=== PATIENT | female | born 1965 | race Caucasian/White ===

== ENCOUNTER 2016-11-28 13:43 | Inpatient (IN) | payer OTHER ==
[~2016-11-28] VITALS: Ht 170.2 cm; Wt 75.4 kg
[~2016-11-28 13:43] MED LIST: ASACOL PO; ASACOL400 MG PO; AUGMENTIN 875/11 TAB PO; BACTRIM DS 8001 TAB PO; CALAN PO; CIPRO500 MG PO; CLARITIN10 M1 PO; CLARITIN10 MG PO; FLAGYL250 MG PO; FLAGYL500 M1 PO; FOLATE1 MG PO; FOLIC ACID1 MG PO; HYDROCODONE/ACE1 TA7 PO; MS-CONTIN30 MG PO; NIASPAN500 MG PO; PEPCID20 M1 PO; PEPCID20 MG PO; PREMARIN0.3 M1 PO; PREMARIN0.625 MG; PRILOSEC40 MG PO; SYNTHROID0.088 MG PO; TRICOR134 MG PO; TRICOR48 MG PO; VERAPAMIL HCL PO; ZOCOR10 M1 PO; ZOCOR20 MG PO
[2016-11-28 14:34] VITALS: BP 127/83
--- NOTE | 2016-11-28 14:43 | NUR ---
Patient to bed 02.
--- NOTE | 2016-11-28 15:04 | NUR ---
Dr. Kirk evaluating patient at bedside.
[2016-11-28] MEDS ORDERED: NACL 0.9% 1,000 ML IV SCH (15:07)
[2016-11-28] MEDS ORDERED: fentaNYL 0.05 MG/ML VIAL IVP ONE (15:10)
[2016-11-28] MEDS ORDERED: NACL 0.9% 1,000 ML IV ONE (15:10)
[2016-11-28] MEDS ORDERED: ONDANSETRON 4 MG/2 ML VIAL IVP ONE (15:10)
--- NOTE | 2016-11-28 15:15 | NUR ---
LAB AT BEDSIDE
--- NOTE | 2016-11-28 15:16 | NUR ---
PATIENT PRESENTS TO DUE TO LOWER RIGHT SIDE ABDOMINAL PAIN/VOMITING X LAST NIGHT; PT STATES HAD COSMETIC SURGERY 11/12/16. SKIN IS PINK/WARM/DRY; AAOX4 WITH EVEN AND STEADY GAIT; LUNGS CLEAR BL; HR EVEN AND REGULAR; PT DENIES ANY FEVER, CP, SOB, OR COUGH AT THIS TIME; PATIENT STATES PAIN OF 10/10/ABDOMEN AT THIS TIME; PATIENT POSITIONED FOR COMFORT; HOB ELEVATED; BEDRAILS UP X2; BED DOWN. WILL DO BODY ASSESSMENT LATER AFTER CT.PT AAO,
--- NOTE | 2016-11-28 15:22 | NUR ---
PT WENT TO CT VIA RUFUS DEWEY AT BEDSIDE
--- NOTE | 2016-11-28 15:33 | NUR ---
PT BACK FROM PT AAO.
--- NOTE | 2016-11-28 16:20 | NUR ---
PT EYES OPEN, IVF ONGOING WELL TOLERATED ,VITAL SIGN STABLE NOTED ,WITH LAMONTE ON LEFT HIP WITH SEROSANGENOUS OUTPUT, SUTURE LINE ON ABDOMEN INTACT .
--- NOTE | 2016-11-28 17:46 | NUR ---
PT AAO, IVF ONGOING WELL TOLERATED, REPORTED TO MD K LEVEL MD NO ORDER FOR NOW, EMPTIED LAMONTE 35ML SEROSANGENIOUS OUTPUT, NOTED SUTURE LINE ON ABDOMEN, DRY WITH BLACK SCAB IN THE MIDDLE,ALSO NOTED DRAIN ON SACRAL NO OUTPUT NOTED.
--- NOTE | 2016-11-28 18:07 | NUR ---
REPORT GIVEN TO SEGUN PT AWARE SHE IS NPO FOR NOW.
[2016-11-28 18:19] VITALS: BP 95/59
--- NOTE | 2016-11-28 18:20 | NUR ---
TRANSFER TO TELE, PT AAO, ABLE TO TRANSFER FROM [facility] TO BED, NO VOMITITNG NOTED, ENDORSED TO LAMONTE CAST ON LEFT HIP INTACT,
--- NOTE | 2016-11-28 18:57 | NUR ---
PT ON UNIT. NO S/S OF ACUTE DISTRESS. AAOX4. IV SITE PATENT AND INTACT. PT DENIES PAIN. LAMONTE DRAIN TO LEFT HIP NOTED. DRAIN TO SACRAL AREA NOTED. PT ORIENTED TO ROOM. CALL LIGHT WITHIN REACH. SAFETY MEASURES ENSURED. WILL CONTINUE TO MONITOR.
--- NOTE | 2016-11-28 19:15 | NUR ---
RECEIVED REPORT FROM HUNTER CAST AT BEDSIDE. INITIAL ASSESSMENT COMPLETED. PT AAOX4. PT AMBULATES. PT HAS IV TO RIGHT FOREARM. PT HAS A SCAR ON ABDOMEN S/P GASTRIC BYPASS ON 11/12/16. LAMONTE DRAIN TO SACRAL AREA NOTED. PT DENIES PAIN AT THIS TIME. ORIENTED PT TO ROOM AND SURROUNDINGS AND USE OF CALL LIGHT. EXPLAINED PLAN OF CARE TO PT AND SHE VERBALIZES UNDERSTANDING. SAFETY MEASURES IN PLACE. WILL CONTINUE TO MONITOR PT.
--- NOTE | 2016-11-28 19:24 | NUR ---
ENDORSED PLAN OF CARE TO NIGHT RN. PT REMAINS IN STABLE CONDITION.
--- NOTE | 2016-11-28 19:30 | NUR ---
DR. COTTER AWARE THAT THERE IS NO CODE FOR PT. HE STATED HE WAS GOING TO PUT IN CODE. WILL CONTINUE TO MONITOR PT.
[2016-11-28 20:00] VITALS: BP 111/75
[2016-11-28] MEDS ORDERED: ACETAMINOPHEN 325 MG TAB PO PRN (20:00)
[2016-11-28] MEDS ORDERED: DOCUSATE SODIUM 100 MG GELCAP PO PRN (20:00)
[2016-11-28] MEDS ORDERED: POTASSIUM CHLORIDE 10 MEQ TABER PO SCH (20:05)
[2016-11-28] MEDS ORDERED: MAG SULF 2000 MG/WATER PREMIX 50 ML IV ONE (20:05)
[2016-11-28] MEDS: MESALAMINE 400 MG CAPSULE.DR PO SCH (21:00)
[2016-11-28] MEDS ORDERED: HYDROmorphone 1 MG/ML AMP IVP PRN (21:05)
[2016-11-28] MEDS ORDERED: PIPERACILLIN/TAZOBACTAM 3.375 GM VIAL IV ONE (22:22)
--- NOTE | 2016-11-28 22:31 | NUR ---
PT COMPLAINING OF ABDOMINAL PAIN 07/11. VS STABLE, WILL MEDICATE ORDERED.
[2016-11-28] MEDS: HYDROmorphone PFS 2 MG/ML SYR IVP PRN (22:34)
[2016-11-28] MEDS: FAMOTIDINE 20 MG TAB PO SCH (22:35)
[2016-11-28] MEDS: PIPER/TAZO 3.375GM/D5W PREMIX 50 ML IV SCH (22:37)
[2016-11-28] MEDS: ONDANSETRON 4 MG/2 ML VIAL IVP PRN (22:50)
--- NOTE | 2016-11-28 22:58 | NUR ---
PT TOLERATED MEDS WELL, CALL LIGHT WITHIN REACH.
--- NOTE | 2016-11-28 23:04 | NUR ---
MESALAMINE NOT GIVEN. MED NOT AVAILABLE.
[2016-11-29] VITALS (7 sets, daily range): BP systolic 88–106; BP diastolic 51–67
--- NOTE | 2016-11-29 00:55 | NUR ---
PT WATCHING TV. PT DENIES PAIN OR DISCOMFORT. CALL LIGHT WITHIN REACH.
--- NOTE | 2016-11-29 03:05 | NUR ---
PT SLEEPING AT THIS TIME, NO SIGNS OF DISTRESS NOTED. CALL LIGHT WITHIN REACH.
--- NOTE | 2016-11-29 03:44 | NUR ---
PT HAS SCDS ON. CALL LIGHT WITHIN REACH.
[2016-11-29] MEDS ORDERED: PIPERACILLIN/TAZOBACTAM 3.375 GM VIAL IV ONE (04:41)
[2016-11-29] MEDS: PIPER/TAZO 3.375GM/D5W PREMIX 50 ML IV SCH ×3 (04:43→20:56)
--- NOTE | 2016-11-29 04:44 | NUR ---
PT COMPLAINING OF ABDOMINAL PAIN 06/11. VS BP 110/68, HR 98, O2 SAT 98%, T 98.7 R 18. WILL MEDICATE ORDERED.
[2016-11-29] MEDS: HYDROmorphone PFS 2 MG/ML SYR IVP PRN ×2 (04:48→21:15)
--- NOTE | 2016-11-29 06:48 | NUR ---
PT STABLE, PT WATCHING TV. PT STATES THAT SHE HAS NOT PAIN AT THIS TIME. WILL CONTINUE TO MONITOR PT.
--- NOTE | 2016-11-29 07:15 | NUR ---
ENDORSED PT IN STABLE CONDITION TO HUNTER CAST FOR CONTINUITY OF CARE.
--- NOTE | 2016-11-29 07:17 | NUR ---
RECEIVED REPORT FROM NIGHT RN. PT RESTING IN BED. AAOX4. NO S/S OF ACUTE DISTRESS. PT DENIES PAIN. IV SITE PATENT AND INTACT. LAMONTE DRAIN TO LEFT HIP PATENT. DRAIN NOTED ON SACRAL AREA WITH NO DRAINAGE. SCABS TO ABDOMEN NOTED. CALL LIGHT WITHIN REACH. SAFETY MEASURES ENSURED. WILL CONTINUE TO MONITOR.
--- NOTE | 2016-11-29 07:58 | NUR ---
PATIENT HAS BEEN SCREENED AND CATEGORIZED MODERATE NUTRITION RISK. PATIENT WILL BE SEEN WITHIN 3-5 DAYS OF ADMISSION. 12/01/16-12/03/[address]
[2016-11-29] MEDS: LEVOTHYROXINE 0.025 MG TAB PO SCH ×2 (09:00→09:24)
[2016-11-29] MEDS: MESALAMINE 400 MG CAPSULE.DR PO SCH ×4 (09:00→20:57)
[2016-11-29] MEDS: LORATADINE 10 MG TAB PO SCH (09:00)
[2016-11-29] MEDS: FENOFIBRATE 48 MG TAB PO SCH ×2 (09:00→09:23)
[2016-11-29] MEDS: VERAPAMIL 180 MG TABER PO SCH (09:00)
--- NOTE | 2016-11-29 09:19 | NUR ---
PT REFUSES SOME AM MEDS AT THIS TIME. PT STATES SHE DOESN'T TAKE THEM AT HOME AND DOESN'T WANT TO BE ON THEM WHILE SHE IS HERE.
[2016-11-29] MEDS: FAMOTIDINE 20 MG TAB PO SCH ×2 (09:20→20:57)
[2016-11-29] MEDS ORDERED: POTASSIUM CHLORIDE 10 MEQ TABER PO SCH ×2 (09:30→19:40)
--- NOTE | 2016-11-29 10:05 | NUR ---
PT RESTING IN BED. NO S/S OF ACUTE DISTRESS. PT TOLERATED AM MEDS WELL. PT TOLERATED BREAKFAST WELL. CALL LIGHT WITHIN REACH. SAFETY MEASURES ENSURED. WILL CONTINUE TO MONITOR.
--- NOTE | 2016-11-29 11:32 | NUR ---
PT UP AND AMBULATING IN HALLWAY. NO S/S OF ACUTE DISTRESS. PT STATES PAIN 05/11. BP IS 93/52. EXPLAINED TO PT THAT HER BP WAS TOO LOW TO GIVE DILAUDID. PT VERBALIZED UNDERSTANDING. DR. COTTER MADE AWARE. PT TAKEN BACK TO HER ROOM. CALL LIGHT WITHIN REACH. SAFETY MEASURES ENSURED. SCD'S ON BLE. WILL CONTINUE TO MONITOR.
--- NOTE | 2016-11-29 12:28 | NUR ---
PT REFUSED DELZICOL AT THIS TIME. PT STATES SHE NO LONGER TAKES THIS AT HOME AND DOESN'T WANT TO TAKE IT HERE.
--- NOTE | 2016-11-29 14:21 | NUR ---
PT RESTING IN BED. NO S/S OF ACUTE DISTRESS. PT STATES SHE HAS 8/10 PAIN. PT'S BP 87/52. DR. COTTER MADE AWARE. PT VERBALIZED UNDERSTANDING THAT DILAUDID CAN'T BE GIVEN WITH A LOW BP. PT DOESN'T WANT TO TRY NORCO BECAUSE OF THE CONSTIPATION. PT STATES SHE WILL WALK AROUND THE UNIT WITH HER FRIEND.
--- NOTE | 2016-11-29 16:05 | NUR ---
PT STATES PAIN IS 8/10. PT'S BLOOD PRESSURE TOO LOW FOR DILAUDID. PT REFUSED NORCO. PT REPOSITIONED. DR. COTTER MADE AWARE. CALL LIGHT WITHIN REACH. WILL CONTINUE TO MONITOR.
--- NOTE | 2016-11-29 16:37 | NUR ---
PT STATES PAIN IS 8/10. PT'S BP TOO LOW TO GIVE PAIN DILAUDID. PT REFUSES NORCO DUE TO NOT WANTING TO BECOME CONSTIPATED. PT STATES SHE WILL TRY TYLENOL. MEDICATED ORDERED.
[2016-11-29] MEDS ORDERED: SIMVASTATIN 20 MG TAB PO SCH (17:00)
[2016-11-29] MEDS ORDERED: oxyCODONE/APAP 5/325 MG 1 TAB TAB PO PRN (17:55)
--- NOTE | 2016-11-29 19:23 | NUR ---
ENDORSED PLAN OF CARE TO NIGHT RN. PT REMAINS IN STABLE CONDITION.
--- NOTE | 2016-11-29 19:40 | NUR ---
RECEIVED PT IN STABLE CONDITION FROM AM NURSE. AWAKE,ALERT AND ORIENTED X4. ON TELE MONITOR. WITH NO C/O OF ANY DISCOMFORT NOR PAIN AT THIS TIME. AMBULATORY. HL ON THE RT HAND#24. CLEAR AND PATENT. HAS J ALBARRAN DRAIN ON THE LT HIP . PLAN OF CARE DISCUSSED AND VERBALIZED UNDERSTANDING. CALL LIGHT PLACED WITHIN EASY REACH . INSTRUCTED TO CALL FOR ANY ASSISTANCE . WILL CONTINUE TO MONITOR.
[2016-11-29] MEDS ORDERED: CLINDAMYCIN 600 MG/4 ML VIAL ONE (20:55)
--- NOTE | 2016-11-29 21:13 | NUR ---
IV ACCESS ON THE RT HAND #24 INFILTRATED. DISCONTINUED. A NEW IV SITE STARTED ON THE LT WRIST #22. CLEAR AND PATENT WITH GOOD BLOOD RETURN.
[2016-11-29] MEDS: CLINDAMYCIN 600 MG in DEXTROSE 5% 50 ML IV SCH (22:15)
[2016-11-29] MEDS: ONDANSETRON 4 MG/2 ML VIAL IVP PRN (23:08)
--- NOTE | 2016-11-29 23:08 | NUR ---
C/O NAUSEA. MEDICATED WITH ZOFRAN IVP ORDERED. WILL CONTINUE TO MONITOR.
--- NOTE | 2016-11-30 01:30 | NUR ---
SLEEPING AT THIS TIME. NO S/S OF ANY DISCOMFORT NOTED. WILL CONTINUE TO MONITOR.
[2016-11-30 03:29] VITALS: BP 128/77
[2016-11-30] MEDS: HYDROmorphone PFS 2 MG/ML SYR IVP PRN (03:32)
--- NOTE | 2016-11-30 04:05 | NUR ---
IV ACCESS ON THE LT WRIST #22 INFILTRATED. NEW IV SITE ON THE RT FA#24 STARTED BY HUNTER BAZANTUBE LANCER.
[2016-11-30] MEDS ORDERED: CLINDAMYCIN 600 MG/4 ML VIAL ONE (04:52)
[2016-11-30] MEDS: PIPER/TAZO 3.375GM/D5W PREMIX 50 ML IV SCH ×2 (04:58→13:00)
[2016-11-30] MEDS: CLINDAMYCIN 600 MG in DEXTROSE 5% 50 ML IV SCH ×2 (05:46→13:00)
--- NOTE | 2016-11-30 06:10 | NUR ---
EMPTIED 60ML OF CREAMY DRAINAGE ON J ALBARRAN.
--- NOTE | 2016-11-30 07:30 | NUR ---
RECEIVED ON BED AAOX4. NO SOB NOTED. NO C/O PAIN AT THIS TIME. IV TO RT FOREARM INFILTRATED. WILL RESTART A NEW LINE SOON. CHEST CLEAR. ABDOMEN SOFT, BOWEL SOUNDS PRESENT. WITH ABDOMINAL SCARS AND SCABS NOTED OPEN TO AIR, WOUND HEALED, S/P MIKY BORGES 11/12/2016. WITH LAMONTE DRAIN ON LEFT ABDOMEN, DRAINING 25 MLS OF YELLOW FAT-LIKE FLUIDS. NO EDEMA NOTED. INSTRUCTED PT TO CALL FOR ASSISTANCE, CALL LIGHT WITHIN REACH, PT VERBALIZED UNDERSTANDING.
--- NOTE | 2016-11-30 07:38 | NUR ---
ENDORSED PT IN STABLE CONDITION TO AM NURSE.
[2016-11-30 08:00] VITALS: BP 103/69
--- NOTE | 2016-11-30 08:00 | NUR ---
PT REFUSED IV RESTART. DR. COTTER NOTIFIED, PT IS FOR DISCHARGE PLANNING TODAY.
[2016-11-30] MEDS ORDERED: HYDROmorphone 2 MG TAB PO SCH (08:50)
[2016-11-30] MEDS: MESALAMINE 400 MG CAPSULE.DR PO SCH ×2 (09:00→13:00)
[2016-11-30] MEDS: LORATADINE 10 MG TAB PO SCH (09:00)
[2016-11-30] MEDS: FAMOTIDINE 20 MG TAB PO SCH (09:00)
[2016-11-30] MEDS: VERAPAMIL 180 MG TABER PO SCH (09:00)
[2016-11-30] MEDS: LEVOTHYROXINE 0.025 MG TAB PO SCH (09:00)
[2016-11-30] MEDS: FENOFIBRATE 48 MG TAB PO SCH (09:00)
--- NOTE | 2016-11-30 09:56 | NUR ---
PT REFUSED ALL HER DUE MEDICATIONS THIS MORNING. RISKS AND BENEFITS DISCUSSED, PT VERBALIZED UNDERSTANDING.
--- NOTE | 2016-11-30 12:05 | NUR ---
PT TOLERATED TOMATO SOUP FOR LUNCH. NO N&V NOTED.
[2016-11-30] MEDS ORDERED: ACETAMINOPHEN-O1 TAB PO (12:36)
[2016-11-30] MEDS ORDERED: FLORASTOR250 MG PO (12:36)
[2016-11-30] MEDS ORDERED: BACTRIM DS 8001 TA1 PO (12:37)
--- NOTE | 2016-11-30 13:00 | NUR ---
DISCHARGE INSTRUCTIONS AND PRESCRIPTIONS GIVEN TO PT WHICH VERBALIZED FULL UNDERSTANDING OF THE INSTRUCTIONS GIVEN AND THE NEED TO FOLLOW UP WITH HER OWN SURGEON ON DECEMBER 07, 2016. IV AND ARM BANDS REMOVED, CANNULA TIP INTACT. PT IS WAITING FOR HER TO PICK HER UP.
--- NOTE | 2016-11-30 14:10 | NUR ---
PT WHEELED TO THE FRONT LOBBY IN STABLE CONDITION. NO C/O PAIN AT THIS TIME. LAMONTE DRAINED TOTAL OF 40 MLS , YELLOW, FATTY LIKE FLUIDS NOTED. PT IS DISCHARGED HOME WITH .
== END 2016-11-30 14:10 | disposition home or self-care (01) | DRG 871 ==
LOC: MED 13:43 → MTU 17:08
PROVIDERS: ADMIT Family Medicine; ATTEND Family Medicine
DX: A41.9 Sepsis, unspecified organism (principal); E43 Unspecified severe protein-calorie malnutrition; N39.0 Urinary tract infection, site not specified; D47.3 Essential (hemorrhagic) thrombocythemia; D64.9 Anemia, unspecified; E87.6 Hypokalemia; E83.42 Hypomagnesemia; E83.51 Hypocalcemia; E83.41 Hypermagnesemia; E03.9 Hypothyroidism, unspecified; E78.5 Hyperlipidemia, unspecified; G43.909 Migraine, unspecified, not intractable, without status migrainosus; I10 Essential (primary) hypertension; M06.9 Rheumatoid arthritis, unspecified; M19.90 Unspecified osteoarthritis, unspecified site; Z98.890 Other specified postprocedural states; R10.9 Unspecified abdominal pain

== ENCOUNTER 2017-02-04 12:54 | Emergency (ER) | payer OTHER ==
[~2017-02-04] VITALS: Ht 170.2 cm; Wt 73.0 kg
[~2017-02-04 12:54] MED LIST changes: +ACET-9494 PO; -ASACOL PO; -ASACOL400 MG PO; -AUGMENTIN 875/11 TAB PO; -BACTRIM DS 8001 TAB PO; -CALAN PO; +CALER180 PO; -CIPRO500 MG PO; -CLARITIN10 M1 PO; -CLARITIN10 MG PO; +FAMO-90 PO; -FLAGYL250 MG PO; -FLAGYL500 M1 PO; -FOLATE1 MG PO; +FOLI1TAB19 PO; -FOLIC ACID1 MG PO; -HYDROCODONE/ACE1 TA7 PO; +LEVO0.083 PO; +LORA10TA19 PO; -MS-CONTIN30 MG PO; +MSCON30 PO; -NIASPAN500 MG PO; +OMEP40EC1 PO; -PEPCID20 M1 PO; -PEPCID20 MG PO; +PRE.3 PO; -PREMARIN0.3 M1 PO; -PREMARIN0.625 MG; -PRILOSEC40 MG PO; +SACC250C4 PO; +SIMV20TA1 PO; +SULF-59 PO; -SYNTHROID0.088 MG PO; +TRI48 PO; -TRICOR134 MG PO; -TRICOR48 MG PO; -VERAPAMIL HCL PO; -ZOCOR10 M1 PO; -ZOCOR20 MG PO; +[UNRECOGNIZED DRUG - CODE] PO
[2017-02-04 13:00] VITALS: BP 121/79
[2017-02-04] MEDS ORDERED: NACL 0.9% 1,000 ML IV SCH (14:11)
[2017-02-04] MEDS ORDERED: ONDANSETRON 4 MG/2 ML VIAL IVP ONE (14:15)
[2017-02-04] MEDS ORDERED: FAMOTIDINE 20 MG/2 ML VIAL IVP ONE (14:15)
--- NOTE | 2017-02-04 14:30 | NUR ---
51/F BIB FAMILY C/O ABDOMINAL PAIN. PT STATES SHE UNDERWENT ABDOMINALPLASTY 11/12/16 AT [facility] IN [place], AND HAS HAD SEVERAL INCISIONAL INFECTIONS SINCE THAT TIME, INCLUDING MRSA. HX HYPERLIPIDEMIA AND HYPOTHYROIDISM. PT DENIES N/V/D; SKIN IS PINK/WARM/DRY; AAOX4 WITH EVEN AND STEADY GAIT; LUNGS CLEAR BL; HR EVEN AND REGULAR; PT DENIES ANY FEVER, CP, SOB, OR COUGH AT THIS TIME; PATIENT STATES PAIN OF 6/10 AT THIS TIME; VSS; PATIENT POSITIONED FOR COMFORT; HOB ELEVATED; BEDRAILS UP X2; BED DOWN. ER MD MADE AWARE OF PT STATUS.
[2017-02-04 14:49] LABS: BASOPHILS # (AUTO) 0.2 K/uL (0.00-0.22); BASOPHILS % (AUTO) 2.5 % (0.0-2.0); EOSINOPHILS # (AUTO) 0.3 K/uL (0-0.4); EOSINOPHILS % (AUTO) 3.4 % (0.0-4.0); HEMATOCRIT 34.7 % (36-48); HEMOGLOBIN 11.6 g/dL (12.0-16.0); LYMPHOCYTES # (AUTO) 2.7 K/uL (2.5-16.5); LYMPHOCYTES % (AUTO) 33.3 % (20.5-51.1); MEAN CORPUSCULAR HEMOGLOBIN 30 pg (27-31); MEAN CORPUSCULAR HGB CONC 33 g/dL (33-37); MEAN CORPUSCULAR VOLUME 90 fL (80-94); MONOCYTES # (AUTO) 0.4 K/uL (0.8-1.0); NEUTROPHILS # (AUTO) 4.6 K/uL (1.8-7.7); NEUTROPHILS % (AUTO) 55.8 % (42.2-75.2); PLATELET COUNT (AUTO) 300 K/uL (140-450); RED BLOOD CELL COUNT(AUTO) 3.87 MIL/uL (4.20-5.40); RED CELL DISTRIBUTION WIDTH 15.1 % (11.6-13.7); WHITE BLOOD COUNT (AUTO) 8.3 K/uL (4.8-10.8)
[2017-02-04 15:04] LABS: CALCIUM 8.5 mg/dL (8.5-10.1); CARBON DIOXIDE 30.5 mmol/L (21-32); CREATININE 0.9 mg/dL (0.6-1.3); POTASSIUM 3.5 mmol/L (3.5-5.1)
[2017-02-04 15:10] LABS: ALBUMIN 3.2 g/dL (3.4-5.0); TOTAL BILIRUBIN 0.6 mg/dL (0.0-1.0); TOTAL PROTEIN, SERUM 6.6 g/dL (6.4-8.2)
--- NOTE | 2017-02-04 15:40 | NUR ---
PT C/O HEADACHE & WANT TYLENOL FOR PAIN. ER MD DR VARGAS NOTIFIED.
[2017-02-04 15:52] LABS: APPEARANCE,URINE CLEAR (CLEAR); BILIRUBIN,URINE NEGATIVE (NEGATIVE); BLOOD, URINE NEGATIVE (NEGATIVE); COLOR,URINE YELLOW (YELLOW); LEUKOCYTE ESTERASE ,URINE NEGATIVE (NEGATIVE); NITRITE, URINE NEGATIVE (NEGATIVE); PH,URINE 5.5 (5.0-9.0); PROTEIN,URINE NEGATIVE (NEGATIVE); UGLUCOSE NEGATIVE (NEGATIVE); UROBILINOGEN,URINE 0.2 EU/dL (0.2 - 1)
[2017-02-04 16:08] LABS: BACTERIA,URINE 0-2 (RARE) /HPF (None Seen); MUCUS,URINE FEW /LPF (None Seen); RBC,URINE 0-5 (RARE) /HPF (0-5); SQUAMOUS EPITHELIAL CELL,UR 0-3 (FEW) /LPF (0-3 (FEW)); WBC,URINE 0-5 (RARE) /HPF (0-5)
[2017-02-04] MEDS ORDERED: ACETAMINOPHEN 325 MG TAB PO ONE (16:15)
[2017-02-04 16:31] VITALS: BP 124/76
== END 2017-02-04 16:31 | disposition home or self-care (01) ==
LOC: MED 12:54
DX: R10.9 Unspecified abdominal pain (principal); K21.9 Gastro-esophageal reflux disease without esophagitis; E03.9 Hypothyroidism, unspecified; E78.00 Pure hypercholesterolemia, unspecified; Z98.890 Other specified postprocedural states; Z88.6 Allergy status to analgesic agent; Z88.8 Allergy status to other drugs, medicaments and biological substances
CPT/HCPCS: 36415; 74177; 80053; 81001; 81025; 82150; 83690; 85025; 85651; 96361; 96374; 96375; 99285; J2405; J3490; J7030; Q9967

== ENCOUNTER 2017-03-06 15:13 | Emergency (ER) | payer OTHER ==
[~2017-03-06] VITALS: Ht 170.2 cm; Wt 73.9 kg
[~2017-03-06 15:13] MED LIST changes: -ACET-9494 PO; +ACETAMINOPHEN-O1 TAB PO; +ASACOL PO; +ASACOL400 MG PO; +AUGMENTIN 875/11 TAB PO; +BACTRIM DS 8001 TA1 PO; +BACTRIM DS 8001 TAB PO; +CALAN PO; -CALER180 PO; +CIPRO500 MG PO; +CLARITIN10 M1 PO; +CLARITIN10 MG PO; -FAMO-90 PO; +FLAGYL250 MG PO; +FLAGYL500 M1 PO; +FLORASTOR250 MG PO; +FOLATE1 MG PO; -FOLI1TAB19 PO; +FOLIC ACID1 MG PO; +HYDROCODONE/ACE1 TA7 PO; -LEVO0.083 PO; -LORA10TA19 PO; +MS-CONTIN30 MG PO; -MSCON30 PO; +NIASPAN500 MG PO; -OMEP40EC1 PO; +PEPCID20 M1 PO; +PEPCID20 MG PO; -PRE.3 PO; +PREMARIN0.3 M1 PO; +PREMARIN0.625 MG; +PRILOSEC40 MG PO; -SACC250C4 PO; -SIMV20TA1 PO; -SULF-59 PO; +SYNTHROID0.088 MG PO; -TRI48 PO; +TRICOR134 MG PO; +TRICOR48 MG PO; +VERAPAMIL HCL PO; +ZOCOR10 M1 PO; +ZOCOR20 MG PO; -[UNRECOGNIZED DRUG - CODE] PO
[2017-03-06 17:03] VITALS: BP 129/89
--- NOTE | 2017-03-06 21:55 | NUR ---
PATIENT LEFT WITHOUT BEING SEEN BY DR. Sol. NO FURTHER CARE PROVIDED FOR PATIENT.
== END 2017-03-06 21:55 | disposition left against medical advice (07) ==
LOC: MED 15:13
DX: R21 Rash and other nonspecific skin eruption (principal); Z53.21 Procedure and treatment not carried out due to patient leaving prior to being seen by health care provider

== ENCOUNTER 2017-03-07 06:45 | Emergency (ER) | payer OTHER ==
[~2017-03-07] VITALS: Ht 170.2 cm; Wt 73.9 kg
[2017-03-07 06:59] VITALS: BP 153/88
--- NOTE | 2017-03-07 07:08 | NUR ---
AMBULATED TO ER BED 4
--- NOTE | 2017-03-07 07:15 | NUR ---
PATIENT PRESENTS TO ED WITH C/O RASH AND BRUISES. PT HAS USED BENADRYL AND CORTISONE WITH NO RELIEF. MED HX: HYPOTHYROIDISM/HYPERCHOLESTEROL/GERD/HEARTBURN/ARTHRITIS/MIGRAINES; DENIES N/V/D; SKIN IS PINK/WARM/DRY; AAOX4 WITH EVEN AND STEADY GAIT; LUNGS CLEAR BL; HR EVEN AND REGULAR; PT DENIES ANY FEVER, CP, SOB, OR COUGH AT THIS TIME; PATIENT STATES PAIN OF 5/10 AT THIS TIME; VSS; PATIENT POSITIONED FOR COMFORT; HOB ELEVATED; BEDRAILS UP X2; BED DOWN. ER MD MADE AWARE OF PT STATUS.
[2017-03-07] MEDS ORDERED: methylPREDNISolone SS 125 MG/2 ML VIAL IVP ONE (07:50)
[2017-03-07] MEDS ORDERED: diphenhydrAMINE 50 MG/ML VIAL IVP ONE (07:50)
[2017-03-07] MEDS ORDERED: FAMOTIDINE 20 MG/2 ML VIAL IVP ONE (07:50)
--- NOTE | 2017-03-07 09:52 | NUR ---
AAO PT AMBULATES TO THE RESTROOM
--- NOTE | 2017-03-07 10:42 | NUR ---
DR BANDA AT BEDSIDE UPDATING AAO PT NO ACUTE DISTRESS NOTE AT THIS TIME
[2017-03-07 10:56] VITALS: BP 141/71
--- NOTE | 2017-03-07 10:56 | NUR ---
Patient discharged with v/s stable. Written and verbal after care instructions given and explained. Patient verbalized understanding. Ambulatory with steady gait. All questions addressed prior to discharge. Advised to follow up with PMD.
== END 2017-03-07 10:56 | disposition home or self-care (01) ==
LOC: MED 06:45
DX: T37.0X5A Adverse effect of sulfonamides, initial encounter (principal); K21.9 Gastro-esophageal reflux disease without esophagitis; E78.00 Pure hypercholesterolemia, unspecified; E03.9 Hypothyroidism, unspecified; E78.5 Hyperlipidemia, unspecified; Z88.8 Allergy status to other drugs, medicaments and biological substances; Z88.6 Allergy status to analgesic agent; Y92.9 Unspecified place or not applicable
CPT/HCPCS: 36415; 80053; 85025; 85610; 85651; 85730; 96372; 96374; 96375; 99284; J0171; J1200; J2930; J3490

== ENCOUNTER 2017-05-31 20:06 | Emergency (ER) | payer OTHER ==
[~2017-05-31] VITALS: Ht 170.2 cm; Wt 70.8 kg
[~2017-05-31 20:06] MED LIST changes: +ACET-9494 PO; -ACETAMINOPHEN-O1 TAB PO; -ASACOL PO; -ASACOL400 MG PO; -AUGMENTIN 875/11 TAB PO; -BACTRIM DS 8001 TA1 PO; -BACTRIM DS 8001 TAB PO; -CALAN PO; +CALER180 PO; -CIPRO500 MG PO; -CLARITIN10 M1 PO; -CLARITIN10 MG PO; +FAMO-90 PO; -FLAGYL250 MG PO; -FLAGYL500 M1 PO; -FLORASTOR250 MG PO; -FOLATE1 MG PO; +FOLI1TAB19 PO; -FOLIC ACID1 MG PO; -HYDROCODONE/ACE1 TA7 PO; +LEVO0.083 PO; +LORA10TA19 PO; -MS-CONTIN30 MG PO; +MSCON30 PO; -NIASPAN500 MG PO; +OMEP40EC1 PO; -PEPCID20 M1 PO; -PEPCID20 MG PO; +PRE.3 PO; -PREMARIN0.3 M1 PO; -PREMARIN0.625 MG; -PRILOSEC40 MG PO; +SACC250C4 PO; +SIMV20TA1 PO; +SULF-59 PO; -SYNTHROID0.088 MG PO; +TRI48 PO; -TRICOR134 MG PO; -TRICOR48 MG PO; -VERAPAMIL HCL PO; -ZOCOR10 M1 PO; -ZOCOR20 MG PO; +[UNRECOGNIZED DRUG - CODE] PO
[2017-05-31 20:22] VITALS: BP 134/87
[2017-05-31 21:11] LABS: BASOPHILS # (AUTO) 0.2 K/uL (0.00-0.22); EOSINOPHILS # (AUTO) 0.3 K/uL (0-0.4); HEMATOCRIT 41.4 % (36-48); HEMOGLOBIN 13.4 g/dL (12.0-16.0); LYMPHOCYTES # (AUTO) 1.3 K/uL (2.5-16.5); MEAN CORPUSCULAR HEMOGLOBIN 29 pg (27-31); MEAN CORPUSCULAR HGB CONC 32 g/dL (33-37); MEAN CORPUSCULAR VOLUME 91 fL (80-94); MONOCYTES # (AUTO) 0.2 K/uL (0.8-1.0); NEUTROPHILS # (AUTO) 5.6 K/uL (1.8-7.7); PLATELET COUNT (AUTO) 315 K/uL (140-450); RED BLOOD CELL COUNT(AUTO) 4.56 MIL/uL (4.20-5.40); RED CELL DISTRIBUTION WIDTH 14.6 % (11.6-13.7); WHITE BLOOD COUNT (AUTO) 7.6 K/uL (4.8-10.8)
[2017-05-31 21:39] LABS: ALBUMIN 3.5 g/dL (3.4-5.0); ANION GAP 12.3 (8-16); CARBON DIOXIDE 28.7 mmol/L (21-32); CREATININE 0.9 mg/dL (0.6-1.3); TOTAL BILIRUBIN 0.7 mg/dL (0.0-1.0)
[2017-05-31 21:44] LABS: APPEARANCE,URINE CLEAR (CLEAR); BILIRUBIN,URINE NEGATIVE (NEGATIVE); BLOOD, URINE NEGATIVE (NEGATIVE); COLOR,URINE YELLOW (YELLOW); LEUKOCYTE ESTERASE ,URINE NEGATIVE (NEGATIVE); NITRITE, URINE NEGATIVE (NEGATIVE); UGLUCOSE NEGATIVE (NEGATIVE)
--- NOTE | 2017-05-31 22:14 | NUR ---
PT TAKEN TO BED 4
--- NOTE | 2017-05-31 22:18 | NUR ---
51 Y/O F W/C/O PELVIC pain X 4 days ago, AND diarrhea SINCE this morning. PT HAS 3 INCISIONS ON ABD WITH PACKING S/P TUMMY TACK X 6 MTHS AGO. DENIES ANY FEVER OR CHILLS. ER MADE AWARE.
--- NOTE | 2017-05-31 22:47 | NUR ---
Dr. Benitez evaluating patient at bedside.
[2017-05-31] MEDS ORDERED: KETOROLAC 30 MG/ML VIAL IVP ONE (22:55)
--- NOTE | 2017-05-31 23:26 | NUR ---
PT TAKEN FOR CT SCAN.
--- NOTE | 2017-05-31 23:43 | NUR ---
PT BACK FROM CT SCAN.
[2017-06-01] MEDS ORDERED: MORPHINE SULFATE 4 MG/ML SYR IVP ONE (00:25)
[2017-06-01] MEDS ORDERED: ONDANSETRON 4 MG/2 ML VIAL IVP ONE (00:40)
--- NOTE | 2017-06-01 00:53 | NUR ---
PT RESTING IN BED, SON AT BEDSIDE, VSS.
[2017-06-01 01:40] VITALS: BP 113/63
--- NOTE | 2017-06-01 01:40 | NUR ---
Patient discharged with v/s stable. Written and verbal after care instructions given and explained. Patient alert, oriented and verbalized understanding of instructions. Ambulatory with steady gait. All questions addressed prior to discharge. ID band removed. Patient advised to follow up with PMD, PER PT SHE HAS AN APPT TODAY. COPY OF LABS AND CT PROVIDED FOR PT. Rx of FLAGYL, CIPRO, MOTRIN, NORCO given. Patient educated on indication of medication including possible reaction and side effects. Opportunity to ask questions provided and answered.
== END 2017-06-01 01:40 | disposition home or self-care (01) ==
LOC: MED 20:06
DX: K57.92 Diverticulitis of intestine, part unspecified, without perforation or abscess without bleeding (principal); K21.9 Gastro-esophageal reflux disease without esophagitis; E07.9 Disorder of thyroid, unspecified; Z98.84 Bariatric surgery status; Z88.6 Allergy status to analgesic agent
CPT/HCPCS: 36415; 74177; 80053; 81003; 81025; 83690; 85025; 96374; 96375; 99285; J1885; J2270; J2405; Q9967

== ENCOUNTER 2017-09-29 16:37 | Emergency (ER) | payer OTHER ==
[~2017-09-29] VITALS: Ht 170.2 cm; Wt 70.8 kg
[~2017-09-29 16:37] MED LIST changes: +FLOR250 PO; -SACC250C4 PO
[2017-09-29 17:16] VITALS: BP 145/95
--- NOTE | 2017-09-29 20:52 | NUR ---
Patient to OF4. RN evaluating patient.
--- NOTE | 2017-09-29 20:52 | NUR ---
52/F CAME IN W C/O RT ARM PAIN S/P PICC LINE REMOVAL X 2 WEEK AGO. PT REPORTS SHE HAD HX OF BLOOD CLOTS OF PICC LINES AND IS HAVING SIMILAR SYMPTOMS. RT ARM +PMSC WITH LIMITED ROM D/T PAIN, CAP REFILL <3 SECONDS, ADELFO MOLDING MANAGER EQUAL. PMH: HYPOTHYROIDISM, MIGRAINES, MRSA ON SURGICAL SITE, HLD
--- NOTE | 2017-09-29 21:17 | NUR ---
Patient transferred back to ED lobby to wait for test results.
--- NOTE | 2017-09-29 22:00 | NUR ---
PT TAKEN TO US
[2017-09-29 23:20] VITALS: BP 135/83
== END 2017-09-29 23:20 | disposition home or self-care (01) ==
LOC: MED 16:37
DX: M79.1 Myalgia (principal); K21.9 Gastro-esophageal reflux disease without esophagitis; E03.9 Hypothyroidism, unspecified; G43.909 Migraine, unspecified, not intractable, without status migrainosus; Z79.899 Other long term (current) drug therapy; Z88.5 Allergy status to narcotic agent; Z88.8 Allergy status to other drugs, medicaments and biological substances
CPT/HCPCS: 73060; 93971; 99284; Q0092